=== PATIENT | female | born 1980 | race Caucasian/White ===

== ENCOUNTER 2019-01-26 14:44 | Emergency (ER) | payer MEDICAID ==
[~2019-01-26] VITALS: Ht 162.6 cm; Wt 96.6 kg
[2019-01-26 14:48] VITALS: Ht 162.6 cm; Wt 96.6 kg
--- NOTE | 2019-01-26 19:54 | ERD ---
ER Documentation Chief Complaint Chief Complaint VB X 2 days, 7 wks HPI Patient is a 38-year-old female with no medical problems who presents with vaginal bleeding. The patient was sent by the [facility] for workup for vaginal bleeding and . She said that she has been bleeding since Wed night. She said that she is approximately 7 weeks and 2 days . She initially had cramping but now the cramping is gone. She has had no treatment as of yet. ROS All systems reviewed and are negative except as per history of present illness. Allergies Allergies: Coded Allergies: No Known Allergy (Unverified , 12/23/15) PMhx/Soc History of Surgery: No Anesthesia Reaction: No Hx Neurological Disorder: No Hx Respiratory Disorders: No Hx Cardiac Disorders: No Hx Psychiatric Problems: No Hx Miscellaneous Medical Probl: Yes (gestational diabetes) Hx Alcohol Use: No Hx Substance Use: No Hx Tobacco Use: No Smoking Status: Never smoker FmHx Family History: No diabetes Physical Exam Vitals Vital Signs Date Temp Pulse Resp B/P (MAP) Pulse Ox O2 O2 Flow FiO2 Time Delivery Rate 01/26/19 98.1 105 18 163/83 98 14:48 (109) Physical Exam Const: No acute distress Head: Atraumatic Eyes: Normal Conjunctiva ENT: Normal External Ears, Nose and Mouth. Neck: Full range of motion. No meningismus. Resp: Clear to auscultation bilaterally Cardio: Regular rate and rhythm, no murmurs Abd: Soft, non tender, non distended. Normal bowel sounds Skin: No petechiae or rashes Back: No midline or flank tenderness Ext: No cyanosis, or edema Neur: Awake and alert Psych: Normal Mood and Affect Result Diagram: 01/26/19 2801 Results 24 hrs Laboratory Tests Test 01/26/19 18:55 01/26/19 18:56 White Blood Count 11.3 10^3/ul Red Blood Count 4.95 10^6/ul Hemoglobin 11.9 g/dl Hematocrit 37.9 % Mean Corpuscular Volume 76.6 fl Mean Corpuscular Hemoglobin 24.0 pg Mean Corpuscular Hemoglobin Concent 31.4 g/dl Red Cell Distribution Width 16.9 % Platelet Count 244 10^3/UL Mean Platelet Volume 10.6 fl Immature Granulocytes % 0.800 % Neutrophils % % Lymphocytes % % Monocytes % % Eosinophils % % Basophils % % Nucleated Red Blood Cells % 0.0 /100WBC Immature Granulocytes # 0.090 10^3/ul Neutrophils # 10^3/ul Lymphocytes # 10^3/ul Monocytes # 10^3/ul Eosinophils # 10^3/ul Basophils # 10^3/ul Nucleated Red Blood Cells # 10^3/ul Urine Color YELLOW Urine Clarity CLOUDY Urine pH 5.0 Urine Specific Roland 1.026 Urine Ketones TRACE mg/dL Urine Nitrite NEGATIVE mg/dL Urine Bilirubin NEGATIVE mg/dL Urine Urobilinogen NEGATIVE mg/dL Urine Leukocyte Esterase TRACE Mayra/ul Urine Microscopic RBC > 182 /HPF Urine Microscopic WBC 94 /HPF Urine Hemoglobin 3+ mg/dL Urine Glucose NEGATIVE mg/dL Urine Total Protein 1+ mg/dl Beta HCG, Quantitative 15.8 mIU/ml Procedures/MDM Ultrasound shows no intrauterine or signs of ectopic at this time per radiology. Patient is a 38-year-old female presents with vaginal bleeding while . Ultrasound shows no IUP but her quantitative hCG is only 15. Based on this information I believe the patient likely had a spontaneous miscarriage which has completed at this point. She is in no distress and is otherwise well-appearing. She is Rh+ and does not require RhoGam. The patient will be discharged with her copies of laboratory studies and ultrasound report and can follow-up with the [facility] clinic within 2-3 days. She can return for any worsening symptoms. At this point I doubt ectopic . Departure Diagnosis: Primary Impression: Miscarriage Condition: Fair Patient Instructions: Miscarriage, Spontaneous (Completed) Referrals: [facility] Additional Instructions: Llame al doctor MOHIT y lubna matilde SAMUEL PARA DENTRO DE 2-3 RESENDIZ.Dgale a la secretaria que nosotros le instruimos hacer esta samuel.Avise o llame si hutchins condicin se empeora antes de la samuel. Regresa aqui si peor o no mejor. CORAL PECK MD Jan 26, 2019 19:54
[2019-01-26 20:07] VITALS: BP 136/87; PULSE 97; RESP 18
== END 2019-01-26 20:08 | disposition home or self-care (01) ==
LOC: FTE 14:44
DX: O03.9 Complete or unspecified spontaneous abortion without complication (principal)
CPT/HCPCS: 36415; 76801; 76817; 81001; 84702; 85025; 86900; 86901; Z7502